=== PATIENT | male | born 1980 | race African-American/Black ===

== ENCOUNTER 2017-02-09 15:57 | Emergency (ER) | payer OTHER ==
[2017-02-09 16:32] VITALS: BP 157/100; PULSE 67; TEMP 97.9; BMI 28.9
--- NOTE | 2017-02-09 18:19 | PDOC ---
History of Present Illness - General History Source: Patient Exam Limitations: No Limitations - History of Present Illness Initial Comments: 02/09/17 18:26 The patient is a 36 year old male with a significant past medical history of anxiety who presents to the ED with complaints of lightheadedness since earlier today and abdominal distension for several days. The patient reports he was sitting down at a psychical training facility when he had a sudden onset of lightheadedness. He states the room was swaying. He also reports that he become confused and slower with his speech and he feels heaviness in his legs as if he is being pushed down. He states that he felt as if he was about to faint. Patient reports visiting an ED on Sunday for similar symptoms and was diagnosed with an umbilical hernia. He reports abdominal distension and discomfort for several days. Patient reports he visited his Gastrologist yesterday and scheduled a colonoscopy endoscopy for this upcoming Sunday for further evaluation of present symptoms. Patient also notes a slight increase in his blood pressure over the past several days. It states it was 157/100 upon arrival to the ED. Denies fevers or chills. Denies nausea, vomiting, or diarrhea. Denies loss of consciousness. Denies focal numbness, weakness, or tingling. Denies any other symptoms. PMH: anxiety, Hypertension secondary to tooth infection, now resolved. Social hx: The patient is a technology trainer. Patient lives an active lifestyle and is a vegetarian. Reports the use of marijuana brownies. Denies alcohol or tobacco use. Family hx: Patients mother has a history of hypertension and kidney disease. Patients father had a stroke at the age of 65. Patients older sister has a history of fibroids and hypertension. <Usha Blackwell - Last Filed: 02/09/17 18:26> <Tootie Moss I - Last Filed: 02/09/17 21:54> - History of Present Illness Initial Comments: 02/21/17 07:44 02/21/17 07:44 <Baldemar Santillan - Last Filed: 02/21/17 07:48> - General Chief Complaint: Lightheaded Stated Complaint: LIGHTHEADED Time Seen by Provider: 02/09/17 16:13 Past History <Usha Blackwell - Last Filed: 02/09/17 18:26> <Tootie Moss I - Last Filed: 02/09/17 21:54> - Past Medical History HTN: Yes - Psycho/Social/Smoking Cessation Hx Anxiety: Yes Suicidal Ideation: No Smoking History: Former smoker Have you smoked in the past 12 months: No Number of Cigarettes Smoked Daily: 0 Information on smoking cessation initiated: No Hx Alcohol Use: Yes (OCCASIONAL) Drug/Substance Use Hx: No Substance Use Type: None <Baldemar Santillan - Last Filed: 02/21/17 07:48> - Past Medical History Allergies/Adverse Reactions: Allergies Allergy/AdvReac Type Severity Reaction Status Date / Time No Known Allergies Allergy Verified 02/09/17 16:23 Home Medications: Ambulatory Orders NK [No Known Home Medication] 02/09/17 Review of Systems - Review of Systems Able to Perform ROS?: Yes Comments:: 02/09/17 18:26 CONSTITUTIONAL: No reported: Fever, Chills, Diaphoresis, Generalized Weakness, Malaise, Loss of Appetite HEENT: No reported: Rhinorrhea, Nasal Congestion, Throat Pain, Throat Swelling, Difficulty Swallowing, Mouth Swelling, Ear Pain, Eye Pain, Visual Changes CARDIOVASCULAR: No reported: Chest Pain, Syncope, Palpitations, Irregular Heart Rate, Lightheadedness, Peripheral Edema RESPIRATORY: No reported: Cough, Shortness of Breath, SOB with Exertion, Orthopnea, Wheezing , Stridor, Hemoptysis GASTROINTESTINAL: No reported: Abdominal pain, Abdominal Distension, Nausea, Vomiting, Diarrhea, Constipation, Melena, Hematochezia GENITOURINARY: No reported: Dysuria, Frequency, Urgency, Hesitancy, Flank Pain, Genital Pain MUSCULOSKELETAL: No reported: Myalgia, Arthralgia, Joint Swelling, Back pain, Neck Pain SKIN: No reported: Rash, Itching, Pallor HEMEATOLOGIC/IMMUNOLOGIC: No reported: Easy Bleeding, Easy Bruising, Lymphadenopathy, Frequent infections ENDOCRINE: No reported: Unexplained Weight Gain, Unexplained Weight Loss, Heat Intolerance , Cold Intolerance NEUROLOGIC: No reported: Headache, Focal Weakness, Paresthesias, Vertigo, Lightheadedness, Unsteady Gait, Seizure, Mental Status Changes, Incontinence PSYCHIATRIC: No reported: Anxiety, Depression <Usha Blackwell - Last Filed: 02/09/17 18:26> *Physical Exam - Vital Signs Last Vital Signs Temp Pulse Resp BP Pulse Ox 97.9 F 67 16 157/100 100 02/09/17 15:58 02/09/17 15:58 02/09/17 15:58 02/09/17 15:58 02/09/17 15:58 - Physical Exam Comments: 02/09/17 18:26 GENERAL: + moderately obese, moderate distress secondary to crampy abdominal pain Well developed, well nourished. Awake and alert. No acute distress. HEENT: + PERRLA 4 ml, fundi benign with sharp disc marginal and good central venous pulsations Normocephalic, atraumatic. EOMI. No conjunctival pallor. Sclera are non- icteric. Moist mucous membranes. Oropharynx is clear. NECK: Supple. Full ROM. No JVD. Carotid pulses 2+ and symmetric, without bruits. No thyromegaly. No lymphadenopathy. CARDIOVASCULAR: Regular rate and rhythm. No murmurs, rubs, or gallops. Distal pulses are 2+ and symmetric. PULMONARY: No evidence of respiratory distress. Lungs clear to auscultation bilaterally. No wheezing, rales or rhonchi. ABDOMINAL: + mildly distended, 2 cm umbilical hernia that is tender and non reducible. examination of hernia provoked severe abdominal cramps which persisted for approximately 10-15 minutes. Soft. No rebound or guarding. No organomegaly. Normoactive bowel sounds. MUSCULOSKELETAL Normal range of motion at all joints. No bony deformities or tenderness. No CVA tenderness. GENITOURINARY: + normal testes, descended bilaterally no masses or tenderness no urethral discharge or lesions. EXTREMITIES: No cyanosis. No clubbing. No edema. No calf tenderness. SKIN: Skin turgor adequate Warm and dry. Normal capillary refill. No rashes. No jaundice. NEUROLOGICAL: Alert, awake, appropriate. Cranial nerves 2-12 intact. No deficits to light touch and temperature in face, upper extremities and lower extremities. No motor deficits in the in face, upper extremities and lower extremities. Normoreflexic in the upper and lower extremities. Normal speech. Toes are down- going bilaterally. Gait is normal without ataxia. PSYCHIATRIC: Cooperative. Good eye contact. Appropriate mood and affect. <Usha Blackwell - Last Filed: 02/09/17 18:26> - Vital Signs Last Vital Signs Temp Pulse Resp BP Pulse Ox 97.9 F 67 16 157/100 100 02/09/17 15:58 02/09/17 15:58 02/09/17 15:58 02/09/17 15:58 02/09/17 15:58 <Tootie Moss I - Last Filed: 02/09/17 21:54> - Vital Signs Last Vital Signs Temp Pulse Resp BP Pulse Ox 97.9 F 67 16 157/100 100 02/09/17 15:58 02/09/17 15:58 02/09/17 15:58 02/09/17 15:58 02/09/17 15:58 <Baldemar Santillan - Last Filed: 02/21/17 07:48> ED Treatment Course - LABORATORY CBC & Chemistry Diagram: 02/09/17 18:35 02/09/17 18:30 - ADDITIONAL ORDERS Additional order review: Laboratory Results 02/09/17 18:30 Sodium 138 Potassium 3.9 Chloride 102 Carbon Dioxide 27 Anion Gap 9 BUN 11 D Creatinine 1.0 Creat Clearance w eGFR > 60 Random Glucose 92 Calcium 9.9 Total Bilirubin 1.3 H D AST 24 D ALT 26 Alkaline Phosphatase 98 H Total Protein 8.1 Albumin 4.9 Lipase 26 02/09/17 18:35 RBC 5.75 H MCV 82.2 MCHC 33.0 RDW 12.7 MPV 9.7 Neutrophils % 67.7 Lymphocytes % 22.0 D Monocytes % 7.4 Eosinophils % 1.0 D Basophils % 1.9 D - Medications Given in the ED: ED Medications Discontinued Medications Generic Name Dose Route Start Last Admin Trade Name Giovanna PRN Reason Stop Dose Admin Acetaminophen 1,000 mg 02/09/17 18:48 02/09/17 19:00 Ofirmev Injection - IVPB 02/09/17 18:49 1,000 mg ONCE ONE Administration Sodium Chloride 1,000 mls @ 1,000 mls/hr 02/09/17 18:47 02/09/17 18:55 Normal Saline - IV 02/09/17 19:46 1,000 mls/hr ASDIR STA Administration <Tootie Moss I - Last Filed: 02/09/17 21:54> - LABORATORY CBC & Chemistry Diagram: 02/09/17 18:35 02/09/17 18:30 <Baldemar Santillan - Last Filed: 02/21/17 07:48> Medical Decision Making - Medical Decision Making The patient is awaiting CT scan of the abdomen and pelvis. This is to rule out incarcerated hernia. He seems to be comfortable at present. Signed out to Dr. Handley pending imaging studies and further medical evaluation and treatment. <Baldemar Santillan - Last Filed: 02/21/17 07:48> *DC/Admit/Observation/Transfer - Attestations Scribe Attestion: 02/09/17 18:26 Documentation prepared by Usha Blackwell, acting as medical tech for Baldemar Rodriguez MD <Usha Blackwell - Last Filed: 02/09/17 18:26> <Tootie Moss I - Last Filed: 02/09/17 21:54> <Baldemar Santillan - Last Filed: 02/21/17 07:48> Diagnosis at time of Disposition: Abdominal pain Qualifiers: Abdominal location: generalized Qualified Code(s): R10.84 - Generalized abdominal pain - Discharge Dispostion Disposition: HOME Condition at time of disposition: Good - Patient Instructions Additional Instructions: Call your doctor in the morning and follow-up with your doctor in the morning if possible. If not make sure you follow-up with your doctor on Sunday. Return to the emergency department immediately with ANY new, persistent or worsening symptoms. Continue any medications as previously prescribed by your physician. You should follow up with your primary doctor as soon as possible regarding today's emergency department visit. . Please make sure your doctor reviews the results of your emergency evaluation. Thank you for coming to the Emergency Department today for your care. It was a pleasure to see you today. Please note that your evaluation is INCOMPLETE until you follow-up with your doctor.
[2017-02-09] MEDS ORDERED: SODIUM CHLORIDE 1,000 ML IV STA (18:47)
[2017-02-09] MEDS ORDERED: ACETAMINOPHEN 1000 MG/100 ML VIAL (NON FORMULARY) IVPB ONE (18:48)
[2017-02-09 18:52] LABS: BASOPHIL 1.9 % (0-2.0); MCH 27.1 pg (25.7-33.7); MEAN CELL VOLUME 82.2 fl (80-96); MEAN PLT VOLUME 9.7 fl (7.5-11.1); NEUTROPHILS 67.7 % (42.8-82.8); PLATELET COUNT 218 K/MM3 (134-434); RDW 12.7 % (11.9-15.9); WHITE BLOOD COUNT 10.3 K/mm3 (4.0-10.8)
[2017-02-09] MEDS ORDERED: ACETAMINOPHEN INJECTION 100 ML IVPB ONE (18:53)
[2017-02-09 19:01] LABS: ALBUMIN 4.9 g/dl (3.5-5.0); ALK PHOS 98 U/L (32-92); ANION GAP 9 (8-16); BILIRUBIN,TOTAL 1.3 mg/dl (0.2-1.0); CALCIUM 9.9 mg/dl (8.4-10.2); CO2 27 mmol/L (22-28); GLUCOSE,RANDOM 92 mg/dl (74-106); SGOT/AST 24 U/L (10-42); SGPT/ALT 26 U/L (10-40); TOT PROT 8.1 g/dl (6.4-8.3)
--- NOTE | 2017-02-09 19:17 | PDOC ---
*Physical Exam - Vital Signs Last Vital Signs Temp Pulse Resp BP Pulse Ox 97.9 F 67 16 157/100 100 02/09/17 15:58 02/09/17 15:58 02/09/17 15:58 02/09/17 15:58 02/09/17 15:58 ED Treatment Course - LABORATORY CBC & Chemistry Diagram: 02/09/17 18:35 02/09/17 18:30 - ADDITIONAL ORDERS Additional order review: Laboratory Results 02/09/17 18:30 Sodium 138 Potassium 3.9 Chloride 102 Carbon Dioxide 27 Anion Gap 9 BUN 11 D Creatinine 1.0 Creat Clearance w eGFR > 60 Random Glucose 92 Calcium 9.9 Total Bilirubin 1.3 H D AST 24 D ALT 26 Alkaline Phosphatase 98 H Total Protein 8.1 Albumin 4.9 Lipase 26 02/09/17 18:35 RBC 5.75 H MCV 82.2 MCHC 33.0 RDW 12.7 MPV 9.7 Neutrophils % 67.7 Lymphocytes % 22.0 D Monocytes % 7.4 Eosinophils % 1.0 D Basophils % 1.9 D - Medications Given in the ED: ED Medications Discontinued Medications Generic Name Dose Route Start Last Admin Trade Name Freq PRN Reason Stop Dose Admin Acetaminophen 1,000 mg 02/09/17 18:48 02/09/17 19:00 Ofirmev Injection - IVPB 02/09/17 18:49 1,000 mg ONCE ONE Administration Progress Note - Progress Note Progress Note: Care of this patient was transferred to pr from Dr. Preciado at 1900 hrs. This is a 36-year-old male who comes in complaining of abdominal pain and dizziness. Patient was noted on exam to have an abdominal wall/umbilical hernia that was not reducible and produced severe pain when Dr. Preciado attempted to reduce it. Patient has a CAT scan pending to rule out incarcerated umbilical hernia. Patient otherwise is being hydrated Patient feels much better his pain is resolved post some hydration. Patient had a CAT scan that was negative for any acute pathology there is no evidence of obstruction there is no evidence of strangulation or incarceration of his umbilical hernia. Patient denies any pain in the area of his umbilical hernia at this time Patient was given copies of all of his blood work I discussed the results of his CAT scan. Patient has a GI doctor as well as a surgeon that he has been following up with it and is due for a colonoscopy and endoscopy on Sunday of next week Patient will call his surgeon in the morning and discuss the CAT scan as well as his symptoms and follow-up with his surgeon in the morning. ollow-up with your doctor. *DC/Admit/Observation/Transfer Diagnosis at time of Disposition: Abdominal pain Qualifiers: Abdominal location: generalized Qualified Code(s): R10.84 - Generalized abdominal pain - Discharge Dispostion Disposition: HOME Condition at time of disposition: Good Admit: No - Patient Instructions Additional Instructions: Call your doctor in the morning and follow-up with your doctor in the morning if possible. If not make sure you follow-up with your doctor on Sunday. Return to the emergency department immediately with ANY new, persistent or worsening symptoms. Continue any medications as previously prescribed by your physician. You should follow up with your primary doctor as soon as possible regarding today's emergency department visit. . Please make sure your doctor reviews the results of your emergency evaluation. Thank you for coming to the Emergency Department today for your care. It was a pleasure to see you today. Please note that your evaluation is INCOMPLETE until you follow-up with your doctor.
== END 2017-02-09 20:55 | disposition home or self-care (01) ==
LOC: FER 15:57
PROC: 3E033NZ Introduction of Analgesics, Hypnotics, Sedatives into Peripheral Vein, Percutaneous Approach (ICD-10-PCS; principal; 2017-02-09)
PROC: 3E0337Z Introduction of Electrolytic and Water Balance Substance into Peripheral Vein, Percutaneous Approach (ICD-10-PCS; 2017-02-09)
DX: R10.9 Unspecified abdominal pain (principal); Z87.891 Personal history of nicotine dependence; I10 Essential (primary) hypertension
CPT/HCPCS: 36415; 74177-TC; 80053; 83690; 85025; 99284-25